=== PATIENT | male | born 1990 | race Caucasian/White ===

== ENCOUNTER 2020-05-01 18:59 | Emergency (ER) | payer OTHER, SELFPAY ==
[2020-05-01 19:16] VITALS: BP 127/83; PULSE 82; RESP 18; TEMP 36.6; O2SAT 96; BMI 25.0
[2020-05-01] MEDS: SODIUM CHLORIDE 0.9% 1,000 ML 1000 ML IV (21:06)
[2020-05-01] MEDS: ONDANSETRON 4 MG/2 ML INJ IV (21:06)
[2020-05-01] MEDS: LORazepam 2 MG/ML INJ 1 MG IV (21:47)
--- NOTE | 2020-05-01 22:52 | ED.NAVMDI ---
HPI - Nausea/Vomiting/Diarrhea General Chief complaint: Nausea/Vomiting/Diarrhea Stated complaint: vomiting Time Seen by Provider: 05/01/20 20:51 Source: patient Mode of arrival: Ambulatory Limitations: no limitations History of Present Illness HPI Narrative: 29-year-old male with what he reports as cyclic vomiting syndrome and also a undiagnosed ?gastritis? here for evaluation of multiple hours of nausea and vomiting. No recent travel no recent antibiotics. He states that his symptoms today he thinks are triggered by smoking marijuana earlier in the day. He states that normally Zofran and Ativan improves his symptoms. He did not have any Ativan at home. Although he did take Zofran prior to arrival Related Data Previous Rx's Medication Instructions Recorded lorazepam [Ativan] 0.5 mg PO TID PRN #4 tab 05/01/20 Allergies Allergy/AdvReac Type Severity Reaction Status Date / Time No Known Drug Allergies Allergy Verified 05/01/20 19:16 Review of Systems Constitutional Constitutional: Denies fatigue and Denies fever(s) Cardiovascular Cardiovascular: Denies chest pain and Denies dyspnea Respiratory Respiratory: Denies dyspnea Gastrointestinal Gastrointestinal: Reports abdominal pain, Denies change in bowel habits, Reports nausea and Reports vomiting Genitourinary Genitourinary: Denies dysuria Genitourinary: Denies dysuria Musculoskeletal Musculoskeletal: Denies arthralgias and Denies myalgias Integumentary/Breasts Skin/Breast: Denies rash Neurologic Neurologic: Denies behavioral changes Psychiatric Psychiatric: Denies behavioral changes Endocrine Endocrine: Denies fatigue Hematologic/Lymphatic Hematologic/Lymphatic: Denies easy bleeding and Denies easy bruising Allergic/Immunologic Allergic/Immunologic: Denies urticaria Patient History Medical History Cyclic vomiting syndrome (Acute) Social History Smoking Status: Never smoker Smoking Status: Never smoker tobacco type: vaping Substance Use Type: marijuana Exam Initial Vital Signs Initial Vital Signs: Vital Signs Temperature 97.8 F 05/01/20 19:16 Pulse Rate 82 05/01/20 19:16 Respiratory Rate 18 05/01/20 19:16 Blood Pressure 127/83 05/01/20 19:16 Pulse Oximetry 96 05/01/20 19:16 Const General: cooperative Limitations: mental status not altered HENKY Head: normal to inspection and normocephalic Resp Effort & Inspection: normal respiratory effort Cardio Rate: regular rate GI Inspection: non-distended Palpation: soft and No tender Skin Lesions: no lesions Rashes: no rashes Neuro General: patient alert, patient awake and patient oriented x3 Cognition: normal cognition Speech: speech normal Extrem General: normal to inspection and capillary refill normal Psych Appearance: grossly normal and well kempt Course Orders Ordered: Discontinued Medications Sodium Chloride (Normal Saline 0.9%) 1,000 mls @ 1,000 mls/hr IV BOLUS ONE Stop: 05/01/20 21:50 Last Infusion: 05/01/20 23:40 Dose: 0 mls/hr Documented by: Admin: 05/01/20 21:06 Dose: 1,000 mls/hr Documented by: AZAR Lorazepam (Ativan) 1 mg IV NOW ONE Stop: 05/01/20 21:42 Last Admin: 05/01/20 21:47 Dose: 1 mg Documented by: AZAR Ondansetron HCl (Zofran) 4 mg IV NOW ONE Stop: 05/01/20 20:52 Last Admin: 05/01/20 21:06 Dose: 4 mg Documented by: AZAR Vital Signs Vital signs: Vital Signs - 8 hr 05/01/20 19:16 05/01/20 23:51 Temperature 97.8 F Pulse Rate 82 68 Respiratory Rate 18 14 Blood Pressure 127/83 125/86 Pulse Oximetry 96 99 MDM - Nausea/Vomiting/Diarrhea MDM Narrative Medical decision making narrative: After receiving Zofran and fluids and Ativan patient no longer had any vomiting. He was also able to tolerate a small amount of oral intake. Informed that he needed to avoid smoking marijuana as this most likely can cause symptoms to return. He is visiting the area and he was instructed needs to contact his primary doctor when he returns home for further evaluation. Expressed understanding and agreement. Discharge Plan Departure Patient Disposition: Home Clinical Impression: Cyclic vomiting syndrome Discharge Date/Time: 05/01/20 23:52 Instructions: Cannabinoid Hyperemesis Syndrome Activity Restrictions/Additional Instructions: Recommend that you abstain from smoking cannabis has this has been proven to make cyclic vomiting syndrome worse. I do recommend you may contact with a new primary provider when you return home. Return to the emergency department for any new or worsening symptoms Prescriptions: New lorazepam [Ativan] 0.5 mg tablet 0.5 mg PO TID PRN (Reason: vomiting) Qty: 4 RF: 0
[2020-05-01 23:51] VITALS: BP 125/86; PULSE 68; RESP 14; O2SAT 99
== END 2020-05-01 23:52 | disposition home or self-care (01) ==
PROVIDERS: Emergency Provider Emergency Medicine
DX: R11.15 Cyclical vomiting syndrome unrelated to migraine (principal); F12.99 Cannabis use, unspecified with unspecified cannabis-induced disorder; R10.9 Unspecified abdominal pain
CPT/HCPCS: 36415; 96361; 96374; 96375; 99284; J2060; J2405